=== PATIENT | female | born 1960 | race Caucasian/White ===

== ENCOUNTER 2020-02-15 13:05 | Outpatient (CLI) | payer OTHER, SELFPAY ==
--- NOTE | 2020-02-15 13:00 | ECG_ITS ---
Measurements Intervals [place] Rate: 74 P: 49 IA: 153 QRS: 13 QRSD: 88 T: 35 QT: 383 QTc: 426 Interpretive Statements SINUS RHYTHM DELAYED PRECORDIAL R/S TRANSITION BORDERLINE ECG Electronically Signed On 02-15-2020 15:03:27 CDT by Vitor Valentino D.O.
[2020-02-15 13:56] LABS: Alanine Aminotransferase 52 U/L (4-35); Albumin Level 4.4 g/dL (3.5-5.1); Alkaline Phosphatase 81 U/L (38-126); Amylase 85 U/L (30-110); Aspartate Amino Transferase 45 U/L (14-36); Bilirubin,Total 0.3 mg/dL (0.2-1.3); Lipase 88 U/L (23-300)
== END 2020-02-15 13:06 | disposition home or self-care (01) ==
LOC: ANHSURGERY 13:11
PROVIDERS: PCP Family Medicine Sports Medicine; Visit Provider Surgery
DX: Z01.818 Encounter for other preprocedural examination (principal); K80.10 Calculus of gallbladder with chronic cholecystitis without obstruction
CPT/HCPCS: 36415; 80076; 82150; 83690; 86850; 86900; 86901; 93005

== ENCOUNTER 2020-02-21 00:56 | Outpatient (CLI) | payer OTHER, SELFPAY ==
[2020-02-21 16:30] LABS: SARS-CoV-2 RNA PCR Negative
== END 2020-02-21 00:57 | disposition home or self-care (01) ==
LOC: ANHCOVIDDT 00:57
PROVIDERS: PCP Family Medicine Sports Medicine; Visit Provider Surgery
DX: Z01.812 Encounter for preprocedural laboratory examination (principal); Z20.828 Contact with and (suspected) exposure to other viral communicable diseases
CPT/HCPCS: 87635; C9803; U0003

== ENCOUNTER 2020-02-23 00:03 | Day surgery (SDC) | payer OTHER, SELFPAY ==
[2020-01-17 14:46] VITALS: BMI 29.5
--- NOTE | 2020-02-22 19:58 | PM.SD ---
Same Day Admit/Disch: HPI History of Present Illness Chief complaint: Chronic Cholecystitis With Stones Narrative: Sera Mendoza is a 59 year old female with postprandial RUQ abdomianl pain, worse after fatty foods. She had an ultrasound which showed gallstones and a HIDA scan that was very abnormal with only a 1% ejection fraction. She has a strong family hx of gallbladder disease. She is taken to surgery now for laparoscopic cholecystectomy. [facility] Past Medical History Medical History (Updated 02/23/20 @ 09:49 by Arnel Quezada MD) Asthma GERD (gastroesophageal reflux disease) History of blood transfusion 1984 Hypothyroidism Surgical History Surgical History History of section History of colonoscopy History of D&C History of endoscopy Family History Family History Sibling Family history of thyroid disease Hypertension Family history of malignant neoplasm of cervix Family history of malignant neoplasm of uterus Family history of malignant neoplasm of breast in first degree relative Family history of malignant neoplasm of thyroid Father Diabetes mellitus Hypertension Mother Diabetes mellitus Grandparent Diabetes mellitus Hypertension Carcinoma of colon Family history of malignant neoplasm of cervix Family history of lung cancer Social History Social History Smoking status: Never smoker Alcohol intake: current 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 Spiritual care concerns: No Same Day Admit/Disch: Med Pre-admit Medications Home Medications Medication Instructions Recorded Confirmed Type albuterol sulfate 90 mcg/actuation 1 puff INHALATION Q4H PRN 01/11/20 02/23/20 History aerosol inhaler estradiol 1 gm VAGINAL WEEKLY 01/11/20 02/23/20 History fluticasone furoate 100 1 inhalation INHALATION DAILY PRN 01/11/20 02/23/20 History mcg-vilanterol 25 mcg/dose inhalation powder levothyroxine 75 mcg capsule 37.5 mcg PO DAILY 01/11/20 02/23/20 History liothyronine 5 mcg tablet 5 mcg PO DAILY 01/11/20 02/23/20 History meclizine 25 mg tablet 25 mg PO DAILY PRN tablet 01/11/20 02/23/20 History omeprazole 20 mg capsule,delayed 20 mg PO DAILY 01/11/20 02/23/20 History release progesterone micronized 200 mg 200 mg PO .[id number] 01/11/20 02/23/20 History capsule valacyclovir 1 gram tablet 1,000 mg PO DAILY PRN 01/11/20 02/23/20 History vitamin B comp and C no.3 15 mg-10 1 cap PO DAILY 01/11/20 02/23/20 History mg-50 mg-5 mg-300 mg capsule cholecalciferol (vitamin D3) 50 mcg PO DAILY 01/17/20 02/23/20 History [Vitamin D3] glucosamine-chondroitin [Osteo 1 tablet PO DAILY 01/17/20 02/23/20 History Bi-Flex] hydrocodone-acetaminophen 1 - 2 tablet PO Q6H PRN #7 tablet 02/23/20 Rx psyllium husk (with sugar) 1 tbsp PO BID #60 packet 02/23/20 Rx [Metamucil (with sugar)] Exam Const: General: comfortable, no acute distress, alert and awake HENMT: Head: normocephalic and atraumatic Mouth: Yes Normal oral and palatal mucosa present Eyes: Conjunctivae: conjunctivae normal Pupils: Equal, round and reactive pupils present EOM: EOMs intact bilaterally Neck: Neck: normal visual inspection, no lymphadenopathy and nontender Resp: Effort & Inspection: normal respiratory effort Auscultation: clear to auscultation bilaterally Cardio: Rate: regular rate Rhythm: regular rhythm Heart sounds: no gallops, no murmurs and no rubs GI: Inspection: non-distended GI Palp: Yes Soft to palpation, No Tenderness to palpation present (GI), No Hepatomegaly present and No Splenomegaly present Skin: Lesions: no lesions Rashes: no rashes Neuro: General: no focal motor deficits and CN's II-XI intact bilaterally Cranial nerves: Yes Equal, round and reactive pupils present, Yes Bilaterally intact EOM pres
[2020-02-23] VITALS (19 sets, daily range): BP systolic 107–142; BP diastolic 70–89; PULSE 60–101; RESP 6–16; TEMP 36.5–36.8; O2SAT 92–100
[2020-02-23] MEDS: LACTATED RINGERS 1,000 ML 30 ML IV CONT ×3 (07:26→12:19)
--- NOTE | 2020-02-23 07:26 | WPDANESEPPF ---
Anes - Initial Pre Proc Eval Procedure: Operation Date: 02/23/20 08:30 Proposed Procedures p Laparoscopic Cholecystectomy - Arnel Quezada MD Date/Time: 02/23/20 07:26 Surgeon: Arnel Quezada MD Pre Op Diagnosis: Chronic Cholecystitis With Stones Patient Data Age: 59 Gender: F Height: 5 ft 4 in Weight: 80 kg Last Vital Signs Temp 98.2 F 02/23/20 07:09 Pulse 82 02/23/20 07:09 Resp 16 02/23/20 07:09 BP 137/88 02/23/20 07:09 Pulse Ox 99 02/23/20 07:09 Allergies Allergy/AdvReac Type Severity Reaction Status Date / Time Sulfa (Sulfonamide Allergy Mild Rash Verified 02/23/20 06:56 Antibiotics) erythromycin base Allergy Unknown NAUSEA/VOMI Verified 02/23/20 06:56 TING/RASH sulfamethizole Allergy Unknown Rash Verified 02/23/20 06:56 trimethoprim Allergy Unknown eyes Verified 02/23/20 06:56 water, itching fish oil AdvReac Mild rash Verified 02/23/20 06:56 fluticasone furoate AdvReac vision Verified 02/23/20 06:56 [From [employer]] difficulty vilanterol AdvReac vision Verified 02/23/20 06:56 [From [facility]] difficulty Home Medications Medication Instructions Recorded Confirmed Type albuterol sulfate 90 mcg/actuation 1 puff INHALATION Q4H PRN 01/11/20 02/23/20 History aerosol inhaler estradiol 1 gm VAGINAL WEEKLY 01/11/20 02/23/20 History fluticasone furoate 100 1 inhalation INHALATION DAILY PRN 01/11/20 02/23/20 History mcg-vilanterol 25 mcg/dose inhalation powder levothyroxine 75 mcg capsule 37.5 mcg PO DAILY 01/11/20 02/23/20 History liothyronine 5 mcg tablet 5 mcg PO DAILY 01/11/20 02/23/20 History meclizine 25 mg tablet 25 mg PO DAILY PRN tablet 01/11/20 02/23/20 History omeprazole 20 mg capsule,delayed 20 mg PO DAILY 01/11/20 02/23/20 History release progesterone micronized 200 mg 200 mg PO .[id number] 01/11/20 02/23/20 History capsule valacyclovir 1 gram tablet 1,000 mg PO DAILY PRN 01/11/20 02/23/20 History vitamin B comp and C no.3 15 mg-10 1 cap PO DAILY 01/11/20 02/23/20 History mg-50 mg-5 mg-300 mg capsule cholecalciferol (vitamin D3) 50 mcg PO DAILY 01/17/20 02/23/20 History [Vitamin D3] glucosamine-chondroitin [Osteo 1 tablet PO DAILY 01/17/20 02/23/20 History Bi-Flex] Patient hx anesthesia problems: none Family hx anesthesia problems: none PMFSH Past Medical History Medical History Asthma GERD (gastroesophageal reflux disease) History of blood transfusion 1983 Hypothyroidism Surgical History Surgical History History of section History of colonoscopy History of D&C History of endoscopy Family History Family History Sibling Family history of thyroid disease Hypertension Family history of malignant neoplasm of cervix Family history of malignant neoplasm of uterus Family history of malignant neoplasm of breast in first degree relative Family history of malignant neoplasm of thyroid Father Diabetes mellitus Hypertension Mother Diabetes mellitus Grandparent Diabetes mellitus Hypertension Carcinoma of colon Family history of malignant neoplasm of cervix Family history of lung cancer Social History Social History Smoking status: Never smoker Alcohol intake: current Additional occupation/education comments: Senior Ux Designer Spiritual care concerns: No Anes - Eval Final PreProcedure Day of Procedure 02/23/20 07:26 Patient weight: obese Heart: regular rate and rhythm Lungs: clear to auscultation Airway: Mallampati scale class II Neurological: alert and oriented Last oral intake: >/= 8 hours ASA classification: III Emergent: no Anesthetic plan: proceed Anesthesia type and monitoring: general ETT and standard monitoring Informed Consent: The patient'
[2020-02-23] MEDS: KETOROLAC 15 MG/ML VIAL (*BKC) IV PUSH (07:27)
[2020-02-23] MEDS: ACETAMINOPHEN 500 MG TABLET 1000 MG PO (07:27)
[2020-02-23] MEDS: SCOPOLAMINE 1.5 MG PATCH TRANSDERM (07:41)
[2020-02-23] MEDS: ONDANSETRON INJ 4 MG/2 ML VIAL IV PUSH ×2 (07:41→12:18)
--- NOTE | 2020-02-23 08:46 | WPDHPUPDATE1 ---
History and Physical Update Update Date/Time: 02/23/20 08:46 History and Physical has been reviewed, including an updated exam of the patient. There are NO changes in the patient's condition. Risks, benefits, and alternatives have been discussed and questions answered. Patient agrees to proceed with procedure.
[2020-02-23] MEDS: ceFAZolin 2 GM/D5W 50 ML 2 GM/50 ML BAG IVPB (08:55)
[2020-02-23] MEDS: BUPIVACAINE/EPINEPHRINE 0.5% 10 ML VIAL 30 ML INFILTRATE (09:21)
--- NOTE | 2020-02-23 09:49 | PM.PROC ---
Procedure Note - Detailed Date of procedure: 02/23/20 Pre-op diagnosis: Chronic Cholecystitis With Stones Chronic cholecystitis, cholelithiasis Post-op diagnosis: same Procedure performed: Laparoscopic cholecystectomy Description of procedure: The patient was taken to surgery and induced into general anesthesia. The abdomen was prepped and draped. Trocars were placed in the usual fashion using 0.5% Marcaine with epinephrine and applied Medical optical trocars. A 5 millimeter camera was used. The gallbladder was decompressed with a laparoscopic aspirator. The cholecystotomy was closed with a Vicryl endo-loop. The gallbladder was retracted anterosuperiorly. Adhesions to the gallbladder were taken down so that the cholecystohepatic triangle was exposed. Traction was placed on the infundibulum. The cystic duct and cystic artery were dissected out very clearly. The gallbladder was dissected off the liver at its lower 3rd. Critical view was achieved. We securely clipped and divided the cystic duct and cystic artery. The gallbladder was then further retracted so that the peritoneal attachments to the liver could be divided. Once the gallbladder was freed entirely, it was placed in an Endo-Catch bag and retrieved through the 10 11 epigastric trocar site. The epigastric trocar was then replaced. We reviewed the right upper quadrant. It was irrigated and suctioned. All looked good with no evidence of bleeding or bile leakage. We evacuated CO2 and removed the trocar sleeves. Skin wounds were closed with subcuticular 4 O Monocryl skin suture. The wounds were dressed with Exofin surgical adhesive. Patient was awakened and taken to recovery in good condition. Sponge and needle counts were correct x2. Anesthesia: GETA and local (0.5% Marcaine with epinephrine) Surgeon: Arnel Quezada MD [employer]: Marily FERNANDEZ Estimated blood loss (mL): 5 Drains: No Packing: No Pathology: yes (Gallbladder) Complications: None Condition: stable Disposition: PACU Findings: Chronic inflammation, no large gallstones noted. No biliary ductal dilatation, no liver abnormalities.
[2020-02-23] MEDS: fentaNYL CITRATE INJ (*CRX) 100 MCG/2 ML VIAL 25 MCG IV PUSH ×4 (10:27→10:47)
[2020-02-23] MEDS: HYDROmorphone HCL INJ (*CRX) 1 MG/ML SYR 0.5 MG IV PUSH ×4 (11:00→11:25)
--- NOTE | 2020-02-23 12:30 | SUR.PHASEII ---
1220 pt falls to sleep with o2 desaturation,89%,applied nc 2L o2 with o2 sat 96%.
[2020-02-23] MEDS: diphenhydrAMINE HCl INJ 50 MG/ML VIAL 6.25 MG IV PUSH (12:40)
--- NOTE | 2020-02-23 12:43 | SUR.PHASEII ---
[address] sweeney regarding nausea,order received and benadryl given ,pt resting with iv fluids continued.
[2020-02-23] MEDS: NALOXONE HCL 0.4 MG/ML VIAL IV PUSH ×3 (15:56→16:18)
[2020-02-23] MEDS: oxyCODONE HCL (*CRX) 5 MG TAB IR PO (16:34)
--- NOTE | 2020-02-23 17:22 | SUR.PHASEII ---
1545 pt drowsy with periods of pausing in breaths,indicative of sleep apnea. called dr owen about nausea and breathing,referred to surgeon. talked with dr garcia. orders for narcan and given in small doses.pt arousing with o2 sat improving,weaned off o2 and awake and alert.
--- NOTE | 2020-02-23 17:29 | SUR.PHASEII ---
1500 use frequently of is.
--- NOTE | 2020-02-23 17:31 | SUR.PHASEII ---
1700 slight nausea,pt wishes to go home.instructed to be tested for sleep apnea.updated daughter frequently.
== END 2020-02-23 17:10 | disposition home or self-care (01) ==
PROVIDERS: PCP Family Medicine Sports Medicine; Visit Provider Surgery
PROC: 0FT44ZZ Resection of Gallbladder, Percutaneous Endoscopic Approach (ICD-10-PCS; CPT 47562; principal; 2020-02-23 08:30)
DX: K80.10 Calculus of gallbladder with chronic cholecystitis without obstruction (principal); J45.909 Unspecified asthma, uncomplicated; K21.9 Gastro-esophageal reflux disease without esophagitis; E03.9 Hypothyroidism, unspecified; E66.9 Obesity, unspecified; Z68.30 Body mass index [BMI] 30.0-30.9, adult
CPT/HCPCS: 47562; 88304; A9270; C1713; J0690; J1100; J1170; J1200; J1885; J2250; J2310; J2370; J2405; J2704; J2710; J3010; J7030; J7120